=== PATIENT | male | born 1955 | race Caucasian/White ===

== ENCOUNTER 2020-02-18 18:50 | Emergency (ER) | payer MEDICARE ==
[~2020-02-18] VITALS: Ht 180.3 cm; Wt 90.7 kg
[~2020-02-18 18:50] MED LIST: CLARITIN10 MG PO; FLONASE ALLERG9.9 ML NAS; NKHM PO; PREDNISONE10 MG PO; VIBRAMYCIN100 MG PO
== END 2020-02-18 19:50 | disposition short-term general hospital (02) ==
LOC: ED 18:50
DX: S51.811A Laceration without foreign body of right forearm, initial encounter (principal); W25.XXXA Contact with sharp glass, initial encounter; Y93.89 Activity, other specified; Y92.89 Other specified places as the place of occurrence of the external cause; Y99.8 Other external cause status

== ENCOUNTER → 2021-07-07 | Outpatient (CLI) | payer MEDICARE | END | disposition home or self-care (01) | LOC: RAD 14:24 | PROVIDERS: ATTEND Emergency Medicine | DX: R91.1 Solitary pulmonary nodule (principal); L92.9 Granulomatous disorder of the skin and subcutaneous tissue, unspecified ==

== ENCOUNTER 2023-11-24 09:15 | Emergency (ER) | payer MEDICARE ==
[~2023-11-24] VITALS: Ht 177.8 cm; Wt 93.0 kg
[2023-11-24] MEDS ORDERED: VIBRAMYCIN HYC100 MG PO (10:57)
== END 2023-11-24 13:16 | disposition home or self-care (01) ==
LOC: ED 09:15
DX: S60.512A Abrasion of left hand, initial encounter (principal); L03.114 Cellulitis of left upper limb; Z98.890 Other specified postprocedural states; X58.XXXA Exposure to other specified factors, initial encounter; Y93.89 Activity, other specified; Y92.89 Other specified places as the place of occurrence of the external cause; Y99.8 Other external cause status

== ENCOUNTER 2024-03-17 09:14 | Emergency (ER) | payer MEDICARE ==
[~2024-03-17] VITALS: Ht 180.3 cm; Wt 88.0 kg
[~2024-03-17 09:14] MED LIST changes: +VIBRAMYCIN HYC100 MG PO
== END 2024-03-17 11:17 | disposition home or self-care (01) ==
LOC: ED 09:14
DX: S62.632A Displaced fracture of distal phalanx of right middle finger, initial encounter for closed fracture (principal); Z98.890 Other specified postprocedural states; X50.1XXA Overexertion from prolonged static or awkward postures, initial encounter; Y93.89 Activity, other specified; Y92.89 Other specified places as the place of occurrence of the external cause; Y99.8 Other external cause status

== ENCOUNTER 2025-08-25 14:56 | Emergency (ER) | payer MEDICARE ==
[2025-08-26] MEDS ORDERED: PREDNISONE20 M1 PO (07:51)
== END 2025-08-25 15:11 | disposition left against medical advice (07) ==
LOC: ED 14:56
DX: M54.2 Cervicalgia (principal); Z53.21 Procedure and treatment not carried out due to patient leaving prior to being seen by health care provider

== ENCOUNTER 2025-08-26 06:22 | Emergency (ER) | payer MEDICARE ==
[~2025-08-26] VITALS: Ht 177.8 cm; Wt 80.3 kg
[2025-08-26] MEDS ORDERED: Acetaminophen/Oxycodone 5 MG/325 MG TABLET PO ONE (06:40)
[2025-08-26] MEDS ORDERED: PREDNISONE20 M1 PO (07:51)
== END 2025-08-26 08:06 | disposition home or self-care (01) ==
LOC: ED 06:22
DX: S16.1XXA Strain of muscle, fascia and tendon at neck level, initial encounter (principal); M50.30 Other cervical disc degeneration, unspecified cervical region; Z79.899 Other long term (current) drug therapy; Z98.890 Other specified postprocedural states; X50.1XXA Overexertion from prolonged static or awkward postures, initial encounter; Y93.89 Activity, other specified; Y92.89 Other specified places as the place of occurrence of the external cause; Y99.8 Other external cause status